=== PATIENT | female | born 1975 | race Caucasian/White ===

== ENCOUNTER 2016-12-09 17:29 | Observation (INO) | payer BC ==
[2016-12-09] MEDS ORDERED: ASPIRIN 81 MG TAB.CHEW PO ONE (17:33)
[2016-12-09] MEDS ORDERED: NITROGLYCERIN 0.4 MG/TAB BTL SL PRN (17:33)
--- OUTSIDE RECORDS SUMMARY | 2016-12-09 17:43 | XMS REPORT | Continuity of Care Document ---
:1975 Author Organization [facility] Address [address] [place] [address] Phone [phone] Care Team Providers Name Role Phone Indy Pyle Primary Care Provider [phone] Source Comments This disclosure is being made pursuant to the Care Everywhere program, applicable federal and state laws, and may not contain all informaitonavailable regarding this patient.[facility] ([facility]) Active Allergies and Adverse Reactions Allergen Noted Date Severity Reactions Comments Penicillins 03/17/2014 Urticaria (Hives) Current Medications Prescription Sig. Disp. Refills Start Date End Date Status levothyroxine 50 mcg Take 50 mcg by 5 10/12/2016 Active tablet mouth daily. venlafaxine 37.5 mg Take 37.5 mg by 1 10/23/2016 Active XR capsule mouth daily. drospirenone-ethinyl Take 1 Tab by Discontinued estradiol (VALARIE) mouth daily. 7 tablet levothyroxine 25 mcg Take 25 mcg by Discontinued tablet mouth every 7 morning before breakfast. vitamin B complex Take 1 Tab by Discontinued tablet mouth daily. 7 phenazopyridine 200 Take 1 Tab by 60 Tab 1 03/17/2014 Discontinued mg tablet mouth 2 times 7 daily as needed. Indications: URINARY TRACT IRRITATION meloxicam PO Take by mouth Discontinued daily. 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 She underwent left flexor carpi ulnaris demetrio haley repair on January 26, [address] Young Degroot. She completed occupational therapy. MRI on 08/22/2016 was reported as nonspecific subcutaneous signal changes anterior medially to the distal ulna in similar nonspecific signal changes within the flexor carpi ulnaris muscle and tendon s uggestive of a remote injury and associated fibrosis. This is presumably from previous laceration and laceration repair. No acute pathology was identified. She was released to full duty. Dr. Degroot recommended a second opinion because she continued to report pain. Problem Noted Date Encounter related to worker's compensation claim 01/17/2016 LEFT wrist 2016 Resolved Problems Problem Noted Date Resolved Date Pelvic pressure in female 03/17/2014 11/09/2016 Urinary frequency 03/17/2014 11/09/2016 Feeling of incomplete bladder emptying 03/17/2014 11/09/2016 Incontinence 03/17/2014 11/09/2016 Most Recent Encounters Date Type Specialty Providers Description 11/10/2016 Office Visit Orthopaedic Hernandez Weiss MD Dx: Encounter related to worker's compensation claim 01/17/2016 LEFT wrist (Primary Dx) Social History Tobacco Use Types Packs/Day Years Used Date Former Smoker Cigarettes 0.5 1 Quit: 07/15/1996 Smokeless Tobacco: Never Used Alcohol Use Drinks/Week oz/Week Comments No Last Filed Vital Signs Vital Sign Reading Time Taken Blood Pressure 139/95 11/10/2016 10:13 AM CDT Pulse 74 11/10/2016 10:13 AM CDT Temperature 36.4 C (97.5 F) 11/10/2016 10:13 AM CDT Respiratory Rate - - Height 1.6 m (5' 3") 11/10/2016 10:13 AM CDT Weight 73.1 kg (161 lb 2.5 oz) 11/10/2016 10:13 AM CDT Body Mass Index 28.55 11/10/2016 10:13 AM CDT Oxygen Saturation - - Plan of Care Health Maintenance Due Date Last Done Comments Hepatitis B Vaccine (1 of 3 - Primary Series) 1975 Tdap Vaccine 1985 Lipid Disorder Screening 1992 MMR Vaccine 1992 Td Vaccine 1992 Cervical Cancer Screening 2004 Mammogram 2014 Influenza Vaccine: Seasonal (Season Ended) 2017 Results from Last 3 Months Not on file
[2016-12-09 17:53] LABS: Hematocrit 35.8 % (37.0-47.0); Mean Cell Volume 90.6 fl (78-100); Mean Corpuscular Hemoglobin 30.4 pg (27-31); Mean Corpuscular Hgb Conc 33.5 g/dl (32-36); Mean Platelet Volume 9.4 fl (6.0-9.5); Neutrophil # 7.6 K/mm3 (1.3-6.0); Platelet Count 207 K/mm3 (150-450); Red Blood Count 3.95 M/mm3 (4.2-5.4); Red Cell Distribution Width 12.9 % (11.5-14.0); White Blood Count 8.4 K/mm3 (4.0-10.5)
[2016-12-09 18:04] LABS: Partial Thrombolplastin Time 25.3 Seconds (24-32); Prothrombin Time (Patient) 10.4 Seconds (9.4-11.4)
[2016-12-09 18:10] LABS: ALT 50 U/L (19-67); AST 33 U/L (0-48); Albumin * 3.9 gm/dl (3.4-5.0); Alkaline Phosphatase * 81 U/L (50-170); Anion Gap 12.5 mmol/L (6.8-13.8); BUN/Creatinine Ratio 20.6 (9.0-21.6); Bilirubin, Total 0.2 mg/dL (0.0-1.1); Blood Urea Nitrogen 22 mg/dL (3-23); Ca. Corrected For Albumin 9.3 mg/dL (8.4-10.2); Calcium * 9.5 mg/dL (7.9-10.9); Carbon Dioxide 28.5 mmol/L (24-32.6); Chloride 105 mmol/L (97-106); Glucose * 141 mg/dL (70-110); Sodium 142 mmol/L (132-142); Total Protein 7.6 gm/dL (6.2-8.2); Troponin I Less than 0.017 ng/ml (0.00-0.10)
--- NOTE | 2016-12-09 19:00 | ERNOTE ---
Chest Pain/Cardiac HPI Chief Complaint: Chest Pain Time Seen by Provider: 12/09/16 17:33 Source: patient Exam Limitations: no limitations Immunizations: IMMUNIZATION HX Immunizations Up to Date Yes History of Influenza Vaccine No Hx Pneumococcal Vaccination No Allergies/Adverse Reactions: Allergies Penicillins Allergy (Verified 12/09/16 17:41) Home Medications: HOME MEDICATIONS Levothyroxine Sodium [Tirosint] 50 mcg PO DAILY 12/31/15 [Last Taken Unknown] Venlafaxine HCl [Effexor Xr] 75 mg PO DAILY 12/31/15 [Last Taken Unknown] Narrative: Patient presents to the emergency room for substernal squeezing type chest pain which began prior to presentation to the emergency room when she was at a rodeo exercising. Pain radiates to the middle of the back she is extremely anxious but denies any diaphoresis or near syncope sensation. By the time I saw the patient patient's chest pain was 8 or 9 out of 10 Review of Systems - Review of Systems Constitutional: Present: no symptoms reported EYE: Present: no symptoms reported ENT: Present: no symptoms reported Respiratory: Present: no symptoms reported Cardiology: Present: See HPI Gastrointestinal/Abdominal: Present: no symptoms reported Genitourinary: Present: no symptoms reported Musculoskeletal: Present: no symptoms reported Skin: Present: no symptoms reported Neurological: Present: other - this patient has a history of anxiety for which she takes effects or, and her anxiety is under control. - Patient's Past Medical History Patient History - Medical: No pertinent hx Patient History - Cardiac/Respiratory: No pertinent hx Patient History - Cancer: Melanoma Patient History - Surgical Procedures: Hysterectomy - Social History Smoking Status: Never smoker Have you smoked in the past 12 months: No Do you dip or chew tobacco: No - Immunizations Immunizations Up to Date: Yes Hx Pneumococcal Vaccination: No History of Influenza Vaccine: No Physical Exam - Physical Exam General Appearance: Present: wd/wn, alert, no apparent distress - patient does appear slightly anxious however she is alert and oriented in no acute distress Eye Exam: Normal inspection: bilateral, PERRL: bilateral, EOMI: bilateral Neck: Present: normal inspection, nontender, supple Respiratory: Present: no respiratory distress, normal breath sounds, no accessory muscle use, chest nontender, lungs clear Cardiovascular/Chest: Present: regular rate, rhythm, no murmur, normal peripheral pulses - Serina patient's pulse is 98 and regular and after administration of one nitroglycerin patient's chest pain disappears and her pulse becomes 68 and regular. Extremity Exam: Present: normal inspection ED Progress - Results and Orders Patient's Lab Results:: I have reviewed the patient's lab results. - Vital Signs Patient's Vital Signs:: I have reviewed the patient's vital signs. Vital Signs: Vital Signs 12/09/16 12/09/16 12/09/16 17:37 17:56 18:11 Temperature 36.4 C L Pulse Rate 85 79 73 Respiratory 22 H 14 14 Rate Blood Pressure 119/89 121/74 125/70 O2 Sat by Pulse 100 97 96 Oximetry 12/09/16 12/09/16 18:31 18:46 Temperature Pulse Rate 62 77 Respiratory 16 18 Rate Blood Pressure 112/69 117/69 O2 Sat by Pulse 98 98 Oximetry - EKG EKG: NSR - X-Ray X-Ray #1 X-Ray: chest - normal chest x-ray - Progress/Reassessment Chief Complaint: Chest Pain Plan - Plan Plan: This patient had one episode of chest pain in the substernal region which went away with nitroglycerin 0.4 mg sublingual. Patient has already taken 650 mg of aspirin at home so no aspirin was administered here. Her first set of enzymes is negative, chest x-ray and EKG are all normal. Dr. Villar was counseled in regards to this patient, patient will be admitted to the observation unit of the [facility] unit of this hospital for second set of enzymes. Departure - Departure Clinical Impression: Chest pain Qualifiers: Chest pain type: unspecified Qualified Code(s): R07.9 - Chest pain, unspecified Disposition: [facility] Condition: Fair Referrals: Christine Bustamante DO [Primary Care Provider] -
--- OUTSIDE RECORDS SUMMARY | 2016-12-09 19:02 | XMS REPORT | Continuity of Care Document ---
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 She underwent left flexor carpi [...]
--- NOTE | 2016-12-09 20:23 | HP ---
Chief Complaint - Chief Complaint Date of Service: 12/09/16 Time of Service: 20:19 Chief Complaint: "tightness between my shoulder blades, and breathing makes it more painful & causes me to breath shallowly". Source of HPI- Pt; reliable, ER provider report. History of Present Illness: Ms. Link is a 41 yr old WF pt who sees Christine Bustamante, a Family Medicine Physician in [facility]. She has no pertinent medical history. She states that yesterday while taking an evening walk, she suddenly developed pain between her shoulder blades. She describes the pain as crushing in nature. She noticed that her LT arm felt heavy while walking and she had to support it across her chest with her RT arm. She also states she had tightness that radiated to her neck and shoulder muscles and felt as though "she had a tight jacket on." She went to bed but when she woke up this morning, she had the tightness between her shoulder blades and also on neck and shoulder muscles. She reports having palpations but it did not last long. She also states that she felt more tired than usual and that taking a good deep breath worsened the pain between her shoulder blades. Her persuaded her to come to the ED later in the afternoon to be checked out. She denies the associated symptoms of n/v, diaphoresis & chest pain. During evaluation at the ED, she received the nitroglycerine SL which she states that the tightness between her shoulder blades went away. The initial evaluation with Troponin and EKG was negative for ACS/ME. The D-dimer was negative. The CXR also did not have any acute findings. The pt will be admitted under observation status for telemetry monitoring with the goal of ruling out a cardiac condition. - Patient's Past Medical History Patient History - Medical: Anxiety Patient History - Cardiac/Respiratory: No pertinent hx Patient History - Cancer: Melanoma Patient History - Surgical Procedures: Hysterectomy Patient History - Other: None - Family History Mother Family History - Cardiac/Respiratory: Hypertension Father Family History - Medical: No pertinent hx - Social History Living Situations: home Psych History: Hx of Anxiety, Current tx/ever been on anti-depressants or anti- anxiety meds Smoking Status: Former smoker - For 2 yrs between age [age] Have you smoked in the past 12 months: No Do you dip or chew tobacco: No Initiate information on Smoking Cessation: No Alcohol Use: none Drug Use: none - Immunizations Immunizations Up to Date: Yes Hx Pneumococcal Vaccination: No History of Influenza Vaccine: No Review Of Systems (GEN) - Review of Systems Generalized/Overall Review: Present: Weakness. Absent: Chills, Fever, Malaise, Diaphoresis EENTM: Absent: Eye Pain, Blurred Vision, Tearing Respiratory: Absent: Cough, Shortness of Breath, Orthopnea, Stridor Cardiac: Present: Palpitations. Absent: Chest Pain Abdominal: Absent: Nausea, Vomiting, Hematemesis, Constipation, Diarrhea, Melena Genitourinary: Absent: Burning, Itching, Urgency, Frequency Musculoskeletal: Absent: Joint Pain, Back Pain, Joint Swelling Neurological: Present: Anxiety. Absent: Headache, Depressed, Seizure Skin: Absent: Lesions, Lumps, Rash Endocrine: Absent: Intolerance to Cold, Intolerance to Heat, Increased Hunger, Increased Thirst Misc: All systems neg except as marked Immunizations: IMMUNIZATION HX Immunizations Up to Date Yes History of Influenza Vaccine No Hx Pneumococcal Vaccination No Allergies/Adverse Reactions: Allergies Allergy/AdvReac Type Severity Reaction Status Date / Time Penicillins Allergy Verified 12/09/16 17:41 Home Medications: HOME MEDICATIONS Levothyroxine Sodium [Tirosint] 50 mcg PO DAILY 12/31/15 [Last Taken Unknown] Venlafaxine HCl [Effexor Xr] 37.5 mg PO DAILY 12/31/15 [Last Taken Unknown] Montelukast Sodium [Singulair] 10 mg PO DAILY 12/09/16 [Last Taken Unknown] Exam - Exam Vital Signs: Vital Signs - Last Taken Temp 36.6 C 12/09/16 19:58 Pulse 61 12/09/16 19:58 Resp 16 12/09/16 19:58 BP 123/64 12/09/16 19:58 Pulse Ox 99 12/09/16 19:58 Constitutional: Present: Alert, Oriented x3, Cooperative, No distress ENT Exam: Present: normal ENT inspection, hearing grossly normal Eye Exam: bilateral eye: normal inspection, PERRL Neck: Present: full range of motion, supple, normal inspection Back Exam: Present: normal inspection, no CVA tenderness Breasts: Present: Exam deferred Respiratory: Present: lungs clear, normal breath sounds, no accessory muscle use Cardiovascular/Chest: Present: normal peripheral pulses, regular rate, rhythm, no chest tenderness, no murmur Abdomen: Present: Normal bowel sounds, soft, nontender /Rectal: Present: Exam deferred Extremity: Present: normal range of motion, non-tender, normal inspection, no pedal edema Skin Exam: Present: warm/dry, no cyanosis Lymphatic: Present: no adenopathy Neurologic: Present: alert, normal mood/affect, oriented x 3 Appearance: Present: appropriate appearance, appropriate insight Eye contact: Present: cooperative, good eye contact, normal speech Thoughts: Present: normal thought pattern, no apparent hallucination Diagnostic Studies: Laboratory Results WBC 8.4 K/mm3 (4.0-10.5) 12/09/16 17:45 RBC 3.95 M/mm3 (4.2-5.4) L 12/09/16 17:45 Hgb 12.0 gm/dL (12.5-16.0) L 12/09/16 17:45 Hct 35.8 % (37.0-47.0) L 12/09/16 17:45 MCV 90.6 fl (78-100) 12/09/16 17:45 MCH 30.4 pg (27-31) 12/09/16 17:45 MCHC 33.5 g/dl (32-36) 12/09/16 17:45 RDW 12.9 % (11.5-14.0) 12/09/16 17:45 Plt Count 207 K/mm3 (150-450) 12/09/16 17:45 MPV 9.4 fl (6.0-9.5) 12/09/16 17:45 Immature Gran % (Auto) 0.70 % (0.001-0.429) H 12/09/16 17:45 Immature Gran # (Auto) 0.06 K/mm3 (0.000-0.0310) H 12/09/16 17:45 Neutrophils % 90.0 % (42-75.0) H 12/09/16 17:45 Lymphocytes % 8.1 % (20-51) L 12/09/16 17:45 Monocytes % 1.0 % (0.0-9) 12/09/16 17:45 Eosinophils % 0.0 % (0.0-3.0) 12/09/16 17:45 Basophils % 0.2 % (0.0-1.0) 12/09/16 17:45 Nucleated RBC % 0.0 k/mm3 (0-1) 12/09/16 17:45 Neutrophils # 7.6 K/mm3 (1.3-6.0) H 12/09/16 17:45 Lymphocytes # 0.7 k/mm3 (1.5-3.5) L 12/09/16 17:45 Monocytes # 0.1 k/mm3 (0.0-1.0) 12/09/16 17:45 Eosinophils # 0.0 k/mm3 (0.0-0.7) 12/09/16 17:45 Absolute Basophils 0.0 k/mm3 (0.0-0.1) 12/09/16 17:45 PT 10.4 Seconds (9.4-11.4) 12/09/16 17:45 INR (Anticoag Therapy) 1.00 INR (0.90-1.10) 12/09/16 17:45 PTT (Charles) 25.3 Seconds (24-32) 12/09/16 17:45 D-Dimer 0.44 mg/L (0.19-0.49) 12/09/16 17:45 Sodium 142 mmol/L (132-142) 12/09/16 17:45 Plasma Sodium 143 mmol/L (130-142) H 12/09/16 17:45 Potassium 4.0 mmol/L (3.4-4.6) 12/09/16 17:45 Chloride 105 mmol/L (97-106) 12/09/16 17:45 Carbon Dioxide 28.5 mmol/L (24-32.6) 12/09/16 17:45 Anion Gap 12.5 mmol/L (6.8-13.8) 12/09/16 17:45 BUN 22 mg/dL (3-23) 12/09/16 17:45 Creatinine 1.07 mg/dL (0.4-1.4) 12/09/16 17:45 Est GFR (Non-Af Amer) 60 mL/min (60-130) 12/09/16 17:45 BUN/Creatinine Ratio 20.6 (9.0-21.6) 12/09/16 17:45 Random Glucose 141 mg/dL (70-110) H 12/09/16 17:45 Calcium 9.5 mg/dL (7.9-10.9) 12/09/16 17:45 Calcium Adj for Albumin 9.3 mg/dL (8.4-10.2) 12/09/16 17:45 Total Bilirubin 0.2 mg/dL (0.0-1.1) 12/09/16 17:45 AST 33 U/L (0-48) 12/09/16 17:45 ALT 50 U/L (19-67) 12/09/16 17:45 Alkaline Phosphatase 81 U/L (50-170) 12/09/16 17:45 Troponin I Less than 0.017 ng/ml (0.00-0.10) 12/09/16 17:45 Total Protein 7.6 gm/dL (6.2-8.2) 12/09/16 17:45 Albumin 3.9 gm/dl (3.4-5.0) 12/09/16 17:45 Assessment/Plan - Assessment/Plan (1) Chest pain, rule out acute myocardial infarction Assessment: Ms. Link presented with complains of tightness pain between her scapulas that was radiating to neck and shoulder muscles. She denied the associated symptoms of N/V, Chest pain, SOB & Diaphoresis. At the time of physical exam, she denies chest pain, but raises concerns that the "pain between her scapula is starting to come back." The initial work-up evaluation involving Troponin and EKG was negative for ACS/ME. Will obtain serial troponin and repeat EKG and she will remain on cardiac telemetry monitoring through the night. I suspect that this in noncardiac related- she has no characteristic factors eg substernal chest pain, n/v, diaphoresis & sob. The CXR was negative for acute findings of pneumonia, pneumothorax or pleural effusion. The d-dimer was also negative and therefore do not suspect Pulmonary embolism and she denied feeling SOB or having pleuritic chest pain. She had no pulse deficits between RT & LT arm and no murmur to suggest thoracic aortic dissection. Should the EKG & Troponin come back negative, will discharge in am and the likely cause of her symptoms would be Musculoskeletal or medically unexplained causes: e.g Anxiety. Will advise to stay active to maintain functional status, & utilize first line medications such as APAP or NSAIDs or Topical NSAIDs- diclofenac. Problem: Acute (2) Anxiety Problem: Chronic
[2016-12-09] MEDS ORDERED: IBUPROFEN 600 MG TABLET PO PRN (22:53)
[2016-12-09] MEDS ORDERED: ACETAMINOPHEN 325 MG TABLET PO PRN (22:53)
--- NOTE | 2016-12-10 05:28 | DS ---
(1) Chest pain, rule out acute myocardial infarction Problem: Acute (2) Anxiety Problem: Chronic Description of Stay: ADMISSION HPI Ms. Link is a 41 yr old WF pt who sees Christine Bustamante, a Family Medicine Physician in [facility]. She has no pertinent medical history. She states that yesterday while taking an evening walk, she suddenly developed pain between her shoulder blades. She describes the pain as crushing in nature. She noticed that her LT arm felt heavy while walking and she had to support it across her chest with her RT arm. She also states she had tightness that radiated to her neck and shoulder muscles and felt as though "she had a tight jacket on." She went to bed but when she woke up this morning, she had the tightness between her shoulder blades and also on neck and shoulder muscles. She reports having palpations but it did not last long. She also states that she felt more tired than usual and that taking a good deep breath worsened the pain between her shoulder blades. Her persuaded her to come to the ED later in the afternoon to be checked out. She denies the associated symptoms of n/v, diaphoresis & chest pain. During evaluation at the ED, she received the nitroglycerine SL which she states that the tightness between her shoulder blades went away. The initial evaluation with Troponin and EKG was negative for ACS/MO. The D-dimer was negative. The CXR also did not have any acute findings. The pt will be admitted under observation status for telemetry monitoring with the goal of ruling out a cardiac condition. HOSPITAL COURSE PROBLEM/S 1.) CHEST PAIN R/O MO. Ms. Link presented with complains of tightness pain between her scapulas that was radiating to neck and shoulder muscles. She denied the associated symptoms of N/V, Chest pain, SOB & Diaphoresis. At the time of physical exam, she denied chest pain, but raised concerns that the "pain between her scapula was starting to come back." The initial work-up evaluation involving Troponin and EKG was negative for ACS/MO. She stayed in the hospital under observation status with remote telemetry monitoring. She had repeat troponin and EKG and the findings again were negative for cardiac involvement. The telemetry monitoring did not show any arrhythmias during the overnight stay. She had NO acute events overnight that involved: substernal chest pain, n/v, diaphoresis & SOB. She had multiple other work-up during the admission. The CXR was negative for of pneumonia, pneumothorax or pleural effusion. The d-dimer was also negative and therefore Pulmonary embolism not suspected, and she denied feeling SOB or having pleuritic chest pain. She had no pulse deficits between RT & LT arm and no murmur to suggest thoracic aortic dissection. Her V.S remained stable during the observation period. The likely cause of her symptoms would be Musculoskeletal or medically unexplained causes: e.g Anxiety. Will advise pt to stay active to maintain functional status, & utilize first line medications such as APAP or NSAIDs or Topical NSAIDs- diclofenac. She is in a stable condition to be discharged home and she was advised to follow-up with her PCP next week. Procedures Performed: none Discharge Disposition: Home self care Disposition: Home self-care Condition: Good Discharge Activity: Activity as tolerated Discharge Diet: General/regular food Referrals: Christine Bustamante DO [Primary Care Provider] - Problem Oriented Discharge Instructions to Patient/Family: Chest Pain Observation Complete Home Medications List: Complete Home Medication List: Levothyroxine Sodium [Tirosint] 50 mcg PO DAILY 12/31/15 Venlafaxine HCl [Effexor Xr] 37.5 mg PO DAILY 12/31/15 Montelukast Sodium [Singulair] 10 mg PO DAILY 12/09/16
[2016-12-10 05:59] VITALS: BP 106/69
[2016-12-10] MEDS ORDERED: LEVOTHYROXINE SODIUM 50 MCG TABLET PO SCH (07:00)
[2016-12-10] MEDS ORDERED: MONTELUKAST SODIUM 10 MG TABLET PO SCH (09:00)
[2016-12-10] MEDS ORDERED: VENLAFAXINE HCL 37.5 MG CAP.SR.24H PO SCH (09:00)
== END 2016-12-10 08:03 | disposition home or self-care (01) ==
LOC: ER 17:29 → MS 18:57
PROVIDERS: ADMIT Internal Medicine; ATTEND Internal Medicine
DX: R07.9 Chest pain, unspecified (principal); F41.9 Anxiety disorder, unspecified
CPT/HCPCS: 36415; 71020; 80053; 84484; 85025; 85379; 85610; 85730; 93005; 99284; G0378

== ENCOUNTER 2017-04-23 17:43 | Emergency (ER) | payer BC ==
[2017-04-23 17:48] VITALS: BP 132/87
--- NOTE | 2017-04-23 18:11 | ERNOTE ---
ER Female HPI Date of Service: 04/23/17 Stated Complaint: URINARY PROBLEM POST OP Presenting Symptoms: other - Urinary retention Time Seen by Provider: 04/23/17 17:49 Source: patient, RN notes reviewed Exam Limitations: no limitations Immunizations: IMMUNIZATION HX Immunizations Up to Date Yes History of Influenza Vaccine No Hx Pneumococcal Vaccination No Allergies/Adverse Reactions: Allergies Penicillins Allergy (Verified 04/23/17 17:47) Home Medications: HOME MEDICATIONS Levothyroxine Sodium [Tirosint] 50 mcg PO DAILY 12/31/15 [Last Taken Unknown] Montelukast Sodium [Singulair] 10 mg PO DAILY 12/09/16 [Last Taken Unknown] - History of Present Illness Narrative: 41 year old female presents to the ED for being unable to void. She had a laparascopic cholecystectomy at [facility] today. She reports being asked if she had urinated when she was discharged, and said no, but thinks the nurse did not hear her. This was approximately 6 hours ago. She reports that she has had the same problem after other surgeries in the past. Date (Duration): 04/23/17 Prior Treatment: Present: recently seen, treated by physician Review of Systems - Review of Systems Constitutional: Absent: fever, chills EYE: Present: no symptoms reported ENT: Present: no symptoms reported Respiratory: Present: no symptoms reported Cardiology: Present: no symptoms reported Gastrointestinal/Abdominal: Absent: nausea, vomiting Genitourinary: Present: pain, decreased urinary output Musculoskeletal: Absent: back pain, muscle pain Skin: Absent: lesions, lumps, change in color Neurological: Absent: dizziness/light-headedness, weakness Endocrine: Present: no symptoms reported Hematologic/Lymphatic: Present: no symptoms reported Psych: Present: no symptoms reported - Patient's Past Medical History Patient History - Medical: Anxiety Patient History - Cardiac/Respiratory: No pertinent hx Patient History - Cancer: Melanoma Patient History - Surgical Procedures: Cholecystectomy, Hysterectomy Patient History - Other: None - Family History Mother Family History - Cardiac/Respiratory: Hypertension Father Family History - Medical: No pertinent hx - Social History Living Situations: spouse Psych History: Hx of Anxiety, Current tx/ever been on anti-depressants or anti- anxiety meds Alcohol Use: none Drug Use: none - Immunizations Immunizations Up to Date: Yes Hx Pneumococcal Vaccination: No History of Influenza Vaccine: No Physical Exam - Physical Exam General Appearance: Present: wd/wn, alert, mild distress, anxious Respiratory: Present: no respiratory distress, no accessory muscle use Gastrointestinal/Abdominal: Present: nondistended, soft, other - laparascopic wounds with steri-strips intact, no drainage or redness Neurological Exam: Present: alert, oriented, normal mood/affect, no motor/ sensory deficits Skin Exam: Present: normal color, warm/dry ED Progress - Vital Signs Patient's Vital Signs:: I have reviewed the patient's vital signs. Vital Signs: Vital Signs 04/23/17 17:44 Temperature 36.7 C Pulse Rate 66 Respiratory 12 Rate Blood Pressure 132/87 O2 Sat by Pulse 99 Oximetry - Progress/Reassessment Chief Complaint: Genitourinary Problem Progress:: Improved Plan - Plan Plan: Straight cath done with 650 ml urine return, patient verbalizes relief. To return as needed and contact her surgeon tomorrow if she is still unable to urinate on her own. Departure Clinical Impression: Postoperative urinary retention - Departure Disposition: Home Follow Up Needed Condition: Stable Instructions: Acute Urinary Retention, Female Additional Instructions: Contact your doctor if you are still not able to urinate on your own tomorrow Return to ER if needed Referrals: Christine Bustamante DO [Primary Care Provider] -
== END 2017-04-23 18:13 | disposition home or self-care (01) ==
LOC: ER 17:43
PROC: 0T9B7ZZ Drainage of Bladder, Via Natural or Artificial Opening (ICD-10-PCS; principal; 2017-04-23)
DX: Z90.49 Acquired absence of other specified parts of digestive tract (principal); R33.8 Other retention of urine; F41.9 Anxiety disorder, unspecified

== ENCOUNTER 2017-04-24 03:37 | Emergency (ER) | payer BC ==
--- NOTE | 2017-04-24 03:51 | ERNOTE ---
ER Female HPI Date of Service: 04/24/17 Stated Complaint: WANTS CATH Presenting Symptoms: other - not able to urinate Time Seen by Provider: 04/24/17 03:49 Source: patient Immunizations: IMMUNIZATION HX Immunizations Up to Date Yes History of Influenza Vaccine No Hx Pneumococcal Vaccination No Allergies/Adverse Reactions: Allergies Penicillins Allergy (Verified 04/24/17 03:43) Home Medications: HOME MEDICATIONS Levothyroxine Sodium [Tirosint] 50 mcg PO DAILY 12/31/15 [Last Taken Unknown] Montelukast Sodium [Singulair] 10 mg PO DAILY 12/09/16 [Last Taken Unknown] - History of Present Illness Narrative: 41 year old that had a cholecystectomy done at about noon. Typically after having general surgery she has had urinary retention. Has been self catherterizing her self four time since the surgery x 4. On the last cath she noted the presence of blood and became irritated at the urethra. She has purposely not drank any fluids since coming back home to avoid urination. Now presents to the ED to request urinary catherterization. No other complaints. Date (Duration): 04/24/17 Time (Timing): 03:50 Timing: Present: constant Quality: Present: moderate Onset Location: Present: other Radiation: Present: none Activities at Onset: Present: none Modifying Factors - (Improves): Present: other - catherterization Modifying Factors - (Worsens): Present: other - not being able to urinate Associated Symptoms: Present: denies symptoms Prior Treatment: Present: recently seen Review of Systems - Review of Systems Constitutional: Present: no symptoms reported EYE: Present: no symptoms reported ENT: Present: no symptoms reported Respiratory: Present: no symptoms reported Cardiology: Present: no symptoms reported Gastrointestinal/Abdominal: Present: no symptoms reported Genitourinary: Present: See HPI Musculoskeletal: Present: no symptoms reported Skin: Present: no symptoms reported Neurological: Present: no symptoms reported Endocrine: Present: no symptoms reported Hematologic/Lymphatic: Present: no symptoms reported Psych: Present: no symptoms reported - Patient's Past Medical History Patient History - Medical: Anxiety Patient History - Cardiac/Respiratory: No pertinent hx Patient History - Cancer: Melanoma Patient History - Surgical Procedures: Cholecystectomy, Hysterectomy Patient History - Other: None - Family History Mother Family History - Cardiac/Respiratory: Hypertension Father Family History - Medical: No pertinent hx - Social History Living Situations: home Psych History: Hx of Anxiety, Current tx/ever been on anti-depressants or anti- anxiety meds Smoking Status: Never smoker - Immunizations Immunizations Up to Date: Yes Hx Pneumococcal Vaccination: No History of Influenza Vaccine: No Physical Exam - Physical Exam General Appearance: Present: no apparent distress Head Exam: Present: normal inspection Eye Exam: Normal inspection: bilateral, Other: bilateral - eyes appear sunken Ears, Nose, Throat: Present: normal ENT inspection Neck: Present: normal inspection Respiratory: Present: no respiratory distress Cardiovascular/Chest: Present: regular rate, rhythm Gastrointestinal/Abdominal: Present: tenderness - minimal Back Exam: Present: normal inspection Extremity Exam: Present: normal inspection Neurological Exam: Present: alert, oriented, normal mood/affect Skin Exam: Present: warm/dry ED Progress - Vital Signs Patient's Vital Signs:: I have reviewed the patient's vital signs. Vital Signs: Vital Signs 04/24/17 03:39 Temperature 37.2 C Pulse Rate 60 Respiratory 20 Rate Blood Pressure 128/72 O2 Sat by Pulse 100 Oximetry - Progress/Reassessment Chief Complaint: Genitourinary Problem Progress:: Improved Progress Note-Subjective: 04/24/17 04:14 Given on liter of NS and indwelling Becerra catheter. Departure Clinical Impression: Urinary (tract) obstruction - Departure Disposition: Home self-care Condition: Good Instructions: Acute Urinary Retention, Female Print Language: Maltese Additional Instructions: Drink 2 liters of water over the next 24 hours. Return to the ED as needed. Have the catheter remove in 48 to 72 hours. Referrals: Christine Bustamante DO [Primary Care Provider] -
[2017-04-24] MEDS ORDERED: NORMAL SALINE 1,000 ML IV ONE (04:15)
[2017-04-24 06:05] VITALS: BP 117/73
== END 2017-04-24 05:46 | disposition home or self-care (01) ==
LOC: ER 03:37
PROC: 0T9B70Z Drainage of Bladder with Drainage Device, Via Natural or Artificial Opening (ICD-10-PCS; principal; 2017-04-24)
DX: N13.9 Obstructive and reflux uropathy, unspecified (principal); F41.9 Anxiety disorder, unspecified; Z85.820 Personal history of malignant melanoma of skin; Z90.49 Acquired absence of other specified parts of digestive tract

== ENCOUNTER 2017-04-25 08:25 | Emergency (ER) | payer BC ==
[2017-04-25 08:38] VITALS: BP 148/80
--- NOTE | 2017-04-25 09:01 | ERNOTE ---
ER Female HPI Date of Service: 04/25/17 Stated Complaint: CATHETER REMOVAL Time Seen by Provider: 04/25/17 08:58 Source: patient Exam Limitations: no limitations Immunizations: IMMUNIZATION HX Immunizations Up to Date Yes History of Influenza Vaccine No Hx Pneumococcal Vaccination No Allergies/Adverse Reactions: Allergies Penicillins Allergy (Verified 04/25/17 08:38) Home Medications: HOME MEDICATIONS Levothyroxine Sodium [Tirosint] 50 mcg PO DAILY 12/31/15 [Last Taken Unknown] Montelukast Sodium [Singulair] 10 mg PO DAILY 12/09/16 [Last Taken Unknown] HYDROcodone/ACETAMINOPHEN [[place] 5-325] 1 - 2 tab PO Q6H PRN 04/25/17 [Last Taken Unknown] - History of Present Illness Narrative: This is a 41-year-old female who recently had a cholecystectomy and was unable to urinate after the surgery therefore she had a Becerra placed. Patient states "I think my bladder is working again" he should request that we remove the Becerra catheter. - Patient's Past Medical History Patient History - Medical: Anxiety Patient History - Cardiac/Respiratory: No pertinent hx Patient History - Cancer: Melanoma Patient History - Surgical Procedures: Cholecystectomy, Hysterectomy Patient History - Other: None - Family History Mother Family History - Cardiac/Respiratory: Hypertension Father Family History - Medical: No pertinent hx - Social History Psych History: Hx of Anxiety, Current tx/ever been on anti-depressants or anti- anxiety meds - Immunizations Immunizations Up to Date: Yes Hx Pneumococcal Vaccination: No History of Influenza Vaccine: No Physical Exam - Physical Exam Narrative: No focused exam is done as patient has no symptoms at this time General Appearance: Present: wd/wn, alert, no apparent distress ED Progress - Vital Signs Patient's Vital Signs:: I have reviewed the patient's vital signs. Vital Signs: Vital Signs 04/25/17 08:33 Temperature 36.5 C Pulse Rate 88 Respiratory 16 Rate Blood Pressure 148/80 O2 Sat by Pulse 100 Oximetry - Progress/Reassessment Chief Complaint: Genitourinary Problem Plan - Plan Plan: Patient has a Becerra catheter postoperatively she requests removal we will remove the catheter. Departure Clinical Impression: Postoperative urinary retention - Departure Disposition: Home self-care Condition: Good Instructions: Acute Urinary Retention, Female Additional Instructions: If urinary retention N Anisha again please come back Referrals: Christine Bustamante, [Primary Care Provider] -
== END 2017-04-25 09:05 | disposition home or self-care (01) ==
LOC: ER 08:25
DX: N99.89 Other postprocedural complications and disorders of genitourinary system (principal); Z90.49 Acquired absence of other specified parts of digestive tract; Z85.820 Personal history of malignant melanoma of skin; Z46.6 Encounter for fitting and adjustment of urinary device